=== PATIENT | male | born 1990 | race African-American/Black ===

== ENCOUNTER 2018-06-03 09:45 | Emergency (ER) | payer SELFPAY ==
[~2018-06-03] VITALS: Ht 182.9 cm; Wt 65.0 kg
[2018-06-03 09:50] VITALS: BP 128/65; TEMP 97.4
[2018-06-03 11:17] LABS: COLLECTION METHOD CLEAN CATCH
[2018-06-03 11:23] LABS: PH 8 (5-8); SQUAMOUS EPITHELIAL None Seen /hpf; URINE APPEARANCE Clear; URINE BACTERIA None Seen /hpf; URINE BILIRUBIN Negative (NEGATIVE); URINE BLOOD Negative (NEGATIVE); URINE COLOR Straw; URINE GLUCOSE Negative (NEGATIVE); URINE KETONE Negative (NEGATIVE); URINE LEUKOCYTE ESTERASE Negative (NEGATIVE); URINE NITRATE Negative (NEGATIVE); URINE PROTEIN(semi-quant) Negative (NEGATIVE); URINE RBC 0-2 /hpf; URINE UROBILINOGEN Negative (NEGATIVE)
[2018-06-03] MEDS ORDERED: VALTREX1 GM PO (11:32)
[2018-06-03 12:40] VITALS: PULSE 71
== END 2018-06-03 12:42 | disposition home or self-care (01) ==
LOC: COL.ER 09:45
PROVIDERS: Physician Assistant
DX: N50.9 Disorder of male genital organs, unspecified (principal); F41.1 Generalized anxiety disorder; R59.0 Localized enlarged lymph nodes; Z20.2 Contact with and (suspected) exposure to infections with a predominantly sexual mode of transmission
CPT/HCPCS: J0696